=== PATIENT | male | born 2005 | race Caucasian/White ===

== ENCOUNTER 2024-01-07 15:15 | Day surgery (SDC) | payer BC ==
[2024-01-07] MEDS: Sodium Chloride 0.9% 1,000 ML IV ONE (16:07)
[2024-01-07 16:25] LABS: BASOPHILS ABSOLUTE AUTO 0.03 K/uL (0.00-0.20); BASOPHILS PERCENT AUTO 0.3 % (0.0-1.0); EOSINOPHILS ABSOLUTE AUTO 0.03 K/uL (0.00-0.45); EOSINOPHILS PERCENT AUTO 0.3 % (0.0-6.0); IMMATURE GRAN ABSOLUTE AUTO 0.03 K/uL (0.00-0.05); IMMATURE GRAN PERCENT AUTO 0.3 % (0.0-0.4); LYMPHOCYTES ABSOLUTE AUTO 1.83 K/uL (1.00-4.80); LYMPHOCYTES PERCENT AUTO 15.3 % (24.0-44.0); MEAN CORPUSCULAR HEMOGLOBIN 30.4 pg (28.0-32.0); MEAN CORPUSCULAR HGB CONC 36.2 g/dL (32.0-36.0); MEAN CORPUSCULAR VOLUME 84.1 fL (83.0-99.0); MEAN PLATELET VOLUME 9.8 fL (9.4-12.4); MONOCYTES PERCENT AUTO 11.7 % (0.0-8.0); NEUTROPHILS ABSOLUTE AUTO 8.63 K/uL (1.80-7.70); NEUTROPHILS PERCENT AUTO 72.1 % (41.0-71.0); PLATELET COUNT,PLT 200 K/uL (150-400); RED BLOOD CELL COUNT 5.59 M/uL (4.52-5.90); WHITE BLOOD CELL COUNT,WBC 11.95 K/uL (3.9-11.3)
[2024-01-07 16:49] LABS: A/G RATIO 1.1 (0.9-1.6); ALBUMIN 4.1 g/dL (3.4-5.0); CALCIUM 9.4 mg/dL (8.5-10.1); CARBON DIOXIDE,CO2 26.6 mmol/L (21.0-32.0); EST CRCL DRUG DOSING (CG) 121.67 mL/min; POTASSIUM,K 3.5 mmol/L (3.5-5.1); PROTEIN TOTAL,TP 7.9 g/dL (6.4-8.2)
[2024-01-07 16:54] LABS: LACTIC ACID 0.8 mmol/L (0.4-2.0)
[2024-01-07] MEDS: Iopamidol 755 MG/ML 500 ML Multipack Bottle IVPUSH STA (17:29)
[2024-01-07] MEDS: cefOXitin 2 GM in Sodium Chloride 0.9% 50 ML IV ONE (18:51)
[2024-01-07] MEDS ORDERED: Morphine 10 MG/ML SDV ONE ×2 (19:04→20:16)
[2024-01-07] MEDS ORDERED: Propofol 200 MG/20 ML SDV ONE (19:05)
[2024-01-07] MEDS ORDERED: Water For Injection, Sterile 20 ML ONE (19:08)
[2024-01-07] MEDS ORDERED: ceFAZolin 2 GM Vial ONE (19:09)
[2024-01-07] MEDS ORDERED: Rocuronium Bromide 50 MG/5 ML Syringe ONE (19:10)
[2024-01-07] MEDS ORDERED: Ropivacaine 0.5% 5 MG/ML 30 ML SDV ONE (19:10)
[2024-01-07] MEDS ORDERED: Dexamethasone 4 MG/ML 5 ML MDV ONE (19:10)
[2024-01-07] MEDS ORDERED: Ketorolac 30 MG/ML SDV ONE (19:10)
[2024-01-07] MEDS ORDERED: Ondansetron 4 MG/2 ML SDV ONE (19:10)
[2024-01-07] MEDS ORDERED: Ketamine HCL/NACL, ISO-OSM 50 MG/5 ML Syringe ONE (19:14)
[2024-01-07] MEDS ORDERED: Bupivacaine 0.5% 30 ML SDV ONE (19:16)
[2024-01-07] MEDS ORDERED: Lidocaine 2% 11 ML Jelly Filled Syringe ONE (19:43)
[2024-01-07] MEDS ORDERED: Famotidine 20 MG/2 ML SDV ONE (19:56)
[2024-01-07] MEDS ORDERED: Glycopyrrolate 0.2 MG/ML SDV ONE (20:38)
[2024-01-07] MEDS ORDERED: Neostigmine Methylsulfate 10 MG/10 ML MDV ONE (20:38)
[2024-01-07] MEDS ORDERED: dexmedeTOMIDine HCl 200 MCG/2 ML SDV ONE (20:43)
[2024-01-07] MEDS ORDERED: Acetaminophen/HYDROcodone 325-5 MG Tab PO PRN (20:55)
[2024-01-07] MEDS ORDERED: Morphine 2 MG/ML SYRINGE IVPUSH PRN (20:56)
[2024-01-07] MEDS ORDERED: Naloxone 0.4 MG/ML SDV IVPUSH PRN (20:56)
[2024-01-07] MEDS ORDERED: Lactated Ringers 1,000 ML IV SCH (21:00)
[2024-01-07] MEDS: Lactated Ringers 1,000 ML IV SCH (22:25)
[2024-01-08 03:00] VITALS: BP 131/72; PULSE 91
== END 2024-01-08 02:46 | disposition home or self-care (01) ==
LOC: MW.ED 15:15 → MW.MS 18:46 → MW.SDS 18:46
PROVIDERS: ATTEND Surgery
DX: K35.30 Acute appendicitis with localized peritonitis, without perforation or gangrene (principal)
CPT/HCPCS: 36415; 44970; 64488; 74177; 80053; 83605; 85025; 87040; 96361; 96365; 99285; A9270; J0131; J0665; J0690; J0694; J1100; J1885; J2270; J2405; J2704; J2710; J2795; J3490; J7030; J7120; Q9967; 00840

== ENCOUNTER 2025-06-02 20:13 | Emergency (ER) | payer BC ==
[2025-06-02] MEDS ORDERED: Sodium Chloride 0.9% 2.5 ML Syringe FLUSH PRN (20:34)
[2025-06-02] MEDS ORDERED: Sodium Chloride 0.9% 10 ML Syringe FLUSH PRN (20:34)
[2025-06-02 20:38] LABS: BASOPHILS ABSOLUTE AUTO 0.04 K/uL (0.00-0.20); BASOPHILS PERCENT AUTO 0.3 % (0.0-1.0); EOSINOPHILS ABSOLUTE AUTO 0.02 K/uL (0.00-0.45); EOSINOPHILS PERCENT AUTO 0.2 % (0.0-6.0); IMMATURE GRAN ABSOLUTE AUTO 0.02 K/uL (0.00-0.05); IMMATURE GRAN PERCENT AUTO 0.2 % (0.0-0.4); LYMPHOCYTES ABSOLUTE AUTO 0.45 K/uL (1.00-4.80); LYMPHOCYTES PERCENT AUTO 3.5 % (24.0-44.0); MEAN PLATELET VOLUME 9.3 fL (9.4-12.4); MONOCYTES ABSOLUTE AUTO 0.88 K/uL (0.00-0.80); MONOCYTES PERCENT AUTO 6.9 % (0.0-8.0); NEUTROPHILS ABSOLUTE AUTO 11.42 K/uL (1.80-7.70); NEUTROPHILS PERCENT AUTO 88.9 % (41.0-71.0); NRBC ABSOLUTE 0.00 K/uL (0.00-0.02); NRBC PERCENT 0.0 /100WBC (0.0-0.2); PLATELET COUNT,PLT 209 K/uL (150-400); RED BLOOD CELL COUNT 5.78 M/uL (4.52-5.90); WHITE BLOOD CELL COUNT,WBC 12.83 K/uL (3.9-11.3)
[2025-06-02 21:15] LABS: A/G RATIO 1.3 (0.9-1.6); ALANINE AMINOTRANSFERASE,ALT 51 IU/L (14-63); ASPARTATE AMNIOTRANSFERASE,AST 28 IU/L (15-37); BILIRUBIN TOTAL 1.0 mg/dL (0.2-1.0); BLOOD UREA NITROGEN,BUN 21 mg/dL (7.0-18.0); CARBON DIOXIDE,CO2 28.3 mmol/L (21.0-32.0); CHLORIDE,CL 102 mmol/L (98-107); CREATININE 1.0 mg/dL (0.8-1.3); ESTIMATED GFR 110 mL/min (>60); GLUCOSE RANDOM 135 mg/dL (74-106); POTASSIUM,K 4.1 mmol/L (3.5-5.1); PROTEIN TOTAL,TP 7.5 g/dL (6.4-8.2); SODIUM,NA 141 mmol/L (136-148)
[2025-06-02] MEDS: Ondansetron 4 MG/2 ML SDV IVPUSH ONE (21:17)
[2025-06-02] MEDS: Alum Hydrox/Mag Hydrox/Simeth 15 ML, Metoclopramide 5 MG, Lidocaine 2% 5 ML PO ONE (21:19)
[2025-06-02 22:44] VITALS: BP 133/71; PULSE 105
== END 2025-06-02 22:53 | disposition home or self-care (01) ==
LOC: MW.ED 20:13
DX: K21.9 Gastro-esophageal reflux disease without esophagitis (principal); R12 Heartburn; Z79.899 Other long term (current) drug therapy
CPT/HCPCS: 36415; 76705; 80053; 83690; 85025; 85652; 86140; 96361; 96374; 99284; A9270; J2405; J3490; J7030; 99283